=== PATIENT | male | born 1955 | race Two or more races ===

== ENCOUNTER 2017-05-23 20:22 | Emergency (ER) | payer SELFPAY ==
[~2017-05-23] VITALS: Ht 167.6 cm; Wt 90.7 kg
[2017-05-23] MEDS ORDERED: cloNIDine HCL 0.1 MG TAB ONE (20:42)
[2017-05-23] MEDS ORDERED: cloNIDine HCL 0.1 MG TAB PO ONE (20:45)
[2017-05-23 23:33] VITALS: BP 182/102
[2017-05-23] MEDS ORDERED: ACETAMINOPHEN/CODEINE#3 (300/30mg) TAB PO ONE (23:45)
== END 2017-05-23 23:55 | disposition home or self-care (01) ==
LOC: ER 20:28
DX: K08.89 Other specified disorders of teeth and supporting structures (principal); R03.0 Elevated blood-pressure reading, without diagnosis of hypertension